=== PATIENT | male | born 1965 | race Caucasian/White ===

== ENCOUNTER 2016-08-31 06:22 | Emergency (ER) | payer BC ==
[~2016-08-31] VITALS: Ht 193 cm; Wt 90.9 kg
[2016-08-31 06:24] VITALS: TEMP 98.5
[2016-08-31] MEDS ORDERED: DESYREL 100MG100 MG PO (06:28)
[2016-08-31] MEDS ORDERED: DEPAKOTE 250MG250 MG PO (06:29)
[2016-08-31 06:59] LABS: BASO % 0.2 % (0.0-2.0); EOS % 0.2 % (0-4.0); GRAN # 7.6 (1.4-6.5); HEMATOCRIT 42.6 % (42.0-52.0); HEMOGLOBIN 15.1 g/dl (13.5-18.0); LYMPH # 0.4 (1.2-3.4); LYMPH % 4.6 % (20.0-51.0); MEAN CELL VOLUME 86 fl (80.0-100.0); MEAN CORPUSCULAR HEMOGLOBIN 30 pg (27.0-31.0); MEAN CORPUSCULAR HGB CONC 35 g/dl (33.0-37.0); MEAN PLATELET VOLUME 9.6 fl (7.4-10.4); MONO # 0.3 (0.1-0.6); MONO % 3.6 % (1.7-9.3); PLATELET COUNT 127 K/mm3 (130-400); RED BLOOD COUNT 4.96 M/mm3 (4.20-5.60); REDCELL DISTRIBUTION WIDTH-CV 11.9 % (11.5-14.5); WHITE BLOOD COUNT 8.3 K/mm3 (4.8-10.8)
[2016-08-31 07:09] LABS: ADJUSTED CALCIUM 9.2 mg/dL (8.4-10.2); ALBUMIN 4.3 gm/dL (3.5-5.0); BILIRUBIN,TOTAL 1.1 mg/dL (0.0-1.0); CALCIUM 9.4 mg/dL (8.4-10.2); CREATININE, serum 1.15 mg/dL (0.66-1.25); POTASSIUM 4.1 mmol/L (3.4-5.0); TOTAL PROTEIN 7.3 gm/dL (6.4-8.2)
[2016-08-31] MEDS ORDERED: ZOFRAN ODT4 MG PO (07:33)
[2016-08-31 07:55] VITALS: BP 130/70; PULSE 93
== END 2016-08-31 08:01 | disposition home or self-care (01) ==
LOC: COL.ER 06:22
PROVIDERS: Emergency Medicine
DX: K52.9 Noninfective gastroenteritis and colitis, unspecified (principal)
CPT/HCPCS: J2405; J2550; J7030

== ENCOUNTER 2021-01-23 10:04 | Day surgery (SDC) | payer BC ==
[~2021-01-23] VITALS: Ht 193 cm; Wt 96.0 kg
[~2021-01-23 10:04] MED LIST: DEPAKOTE 250MG250 MG PO; DESYREL 100MG100 MG PO; ZOFRAN ODT4 MG PO
[2021-01-23] MEDS ORDERED: DEPAKOTE500 MG PO (10:50)
[2021-01-23] MEDS ORDERED: XANAX 0.5MG0.5 MG PO (10:50)
[2021-01-23 11:17] VITALS: BP 113/75; PULSE 71; TEMP 98.8
[2021-01-23] MEDS ORDERED: MOTRIN 600600 MG/TAB PO (13:01)
[2021-01-23] MEDS ORDERED: COLACE 100100 MG/CAP PO (13:02)
[2021-01-23] MEDS ORDERED: NORCO 325 MG-51 TAB PO (13:02)
[2021-01-23 15:08] VITALS: BP 143/73; PULSE 72
--- NOTE | 2021-01-23 15:08 | NUR ---
Patient returns to room 1 per cart from PACU accompanied by Es CORONADO and is awake and alert. IV fluids infusing and site is free of redness. Patient has scrotal support in place. Denies pain or nausea. Lap sites x3 on abdomen covered with surgical glue and wound edges well approximated. Siderails up x2 and call light in reach.
[2021-01-23 15:12] VITALS: TEMP 97.1
[2021-01-23 15:23] VITALS: BP 144/84; PULSE 72
--- NOTE | 2021-01-23 15:23 | NUR ---
Eating applesauce. Denies pain or nausea.
[2021-01-23 15:48] VITALS: BP 146/90; PULSE 65
--- NOTE | 2021-01-23 15:48 | NUR ---
Drinking water and eating applesauce. Continues to deny pain or nausea.
--- NOTE | 2021-01-23 15:55 | NUR ---
IV to INT and assisted patient up to the bathroom. Gait steady.
--- NOTE | 2021-01-23 16:00 | NUR ---
Voids and returns to room. INT needle discontinued and site is free of redness.
--- NOTE | 2021-01-23 16:12 | NUR ---
Dismissal instructions given and voices understanding of these.
--- NOTE | 2021-01-23 16:15 | NUR ---
Patient dismissed to home driven by friend and taken to the vehicle per wheelchair and dismissed to home with instructions in hand.
== END 2021-01-23 16:15 | disposition home or self-care (01) ==
LOC: SDCO 10:04
DX: K40.90 Unilateral inguinal hernia, without obstruction or gangrene, not specified as recurrent (principal); D17.6 Benign lipomatous neoplasm of spermatic cord; G47.30 Sleep apnea, unspecified; E03.9 Hypothyroidism, unspecified; F41.9 Anxiety disorder, unspecified; F32.9 Major depressive disorder, single episode, unspecified; Z79.899 Other long term (current) drug therapy
CPT/HCPCS: C1781; J0690; J1100; J1885; J2405; J2704; J3010; J7120